=== PATIENT | female | born 1950 | race Caucasian/White ===

== ENCOUNTER → 2020-05-09 | Outpatient (CLI) | payer MEDICARE, OTHER ==
[~2020-05-09] MED LIST: CA C1TAB29 PO; CHOL4POW3 PO; DICL75TA PO; LEVE500T56 PO; LUTEIN; METO50TA4 PO; OMEG-117 PO; POTA20TA4 PO; UBID200C7 PO; ZOLP5TAB5 PO; [UNRECOGNIZED DRUG - CODE] PO; [UNRECOGNIZED DRUG - OTHER]; methylPREDNISolone ACETATE 40 MG/ML VIAL. ONE; methylPREDNISolone ACETATE 80 MG/ML VIAL. ONE
--- NOTE | 2020-05-09 13:50 | PDOC2 ---
INITIAL PAIN CONSULT DATE OF SERVICE: DOS: DATE: 05/09/20 TIME: 13:43 CHIEF COMPLAINT: Chief Complaint: Low back and right lower extremity pain HISTORY OF PRESENT ILLNESS: 69-year-old female presents with history of pain low back right lower extremity for about 6 months after she fell at home November 12, 2019 patient report before that she was doing fairly well but did have some pain in the low back but now is in the low back rating to the right lower extremity in the posterior lateral thigh lateral anterior thigh anterior medial thigh medial lower leg and into the posterior calf on the right as well. Patient which is worse with walking standing changing positions better with sitting or laying down does not awaken her from sleep generally but she does take sleeping aids to sleep patient reports it does affect her bowel bladder bowel and bladder control with some increased urgency but no loss of bowel function patient scribes pain is sharp and shooting in the low back and right lower extremity intermittent intensity worse with walking standing radiating in the right lower extremity as described. Patient has tried physical therapy as well as chiropractic treatment which did help but only to a temporary period of time and is not long-lasting. Patient is been taking [id number] anti-inflammatories as well as Tylenol with mild decrease in pain as well patient did have a CT scan of the lumbar spine showing L4-5 severe degenerative loss of disc height with disc bulge in the cephalad direction causing moderate left and moderate to severe right foraminal narrowing. Patient reports no overt loss of motor function but significant fatigability with the right lower extremity with ambulation.. PAST MEDICAL HISTORY: PMH: CV hypertension, irregular heart rhythm, endocarditis, asthma, dizziness, arthritis, kidney stones. PREVIOUS SURGERIES: Past Surgical Hx: Bilateral cataract extraction, meniscus surgery bilaterally 2005 and D&C 1987 CURRENT MEDICATIONS: Current Meds: Active Scripts Medications Dose Route/Sig Max Daily Dose Days Date Category Niacin Flush-Free 500 Mg Cap (Niacin (Inositol Niacinate)) 400 Mg Capsule 500 Mg PO DAILY 05/09/20 Reported [eye delmer w/lutein] 05/09/20 Reported Co Q-10 (Ubidecarenone) 200 Mg Capsule 1 Cap PO DAILY 30 05/09/20 Reported Vitamin D3-Aloe 1,000 Unit Tab (Ca Cmb 1/Vit D3/B-6/Fa/B12/Av) 1 Each Tablet 1 Each PO DAILY 05/09/20 Reported Fish Oil 1,200 mg Softgel ([place]-3/Dha/Epa/Fish Oil) 1 Each Capsule.dr 1 Cap PO BID 30 05/09/20 Reported Prevalite Packet (Cholestyramine/Aspartame) 4 Gm Powd.pack 4 Gm PO 1-2XD 05/09/20 Reported Potassium Chloride (Potassium Chloride) 20 Meq Tablet.er 20 Meq PO BID 05/09/20 Reported Zolpidem Tartrate 5 Mg Tablet 5 Mg PO PRN QHS PRN 05/09/20 Reported Keppra (Levetiracetam) 500 Mg Tablet 1 Tab PO BID 30 05/09/20 Reported Diclofenac Sodium 75 Mg Tablet.dr 1 Tab PO BID 05/09/20 Reported Toprol XL (Metoprolol Succinate) 50 Mg Tab.er.24h 50 Mg PO DAILY 05/09/20 Reported ALLERGIES; Allergies: Coded Allergies: bacitracin (Verified Allergy, Severe, hematuria,, 05/09/20) levofloxacin (Verified Allergy, Severe, swelling, 05/09/20) vancomycin (Verified Allergy, Severe, swelling, 05/09/20) iodine (Verified Allergy, Intermediate, 05/09/20) shellfish derived (Verified Allergy, Intermediate, 05/09/20) Uncoded Allergies: IV contrast (Allergy, Intermediate, 05/09/20) FAMILY HISTORY: Family Hx: Alzheimer's disease SOCIAL HISTORY: Social Hx: Patient does not drink alcohol does not smoke does not use any illegal illicit or recreational drugs is retired lives locally in [facility] REVIEW OF SYSTEMS: ROS: As of those on his mid to his present illness all systems are reviewed otherwise negative complete full well-documented on patient's chart PHYSICAL EXAM: VS: Pressure 152/74 pulse 58 respirations 20 temperature is 98.4 F height is 5 foot 4 inches weight is 207 pounds PE: PHYSICAL EXAMINATION: GENERAL: The patient is awake, alert, oriented, appropriate, very pleasant demeanor HEENT: Shows normocephalic, atraumatic. Extraocular movements are intact and symmetrical. Oral cavity: Mucous membranes moist and pink. Dentition is intact. NECK: Shows anterior throat supple without palpable lymphadenopathy noted. Swallow reflex symmetrical. CHEST: Shows normal on inspection. Breath sounds are clear bilaterally, no rales rhonchi or wheezes auscultated. HEART: Shows S1, S2 clear. No murmurs auscultated. ABDOMEN: Soft, nontender, nondistended. No palpable organomegaly is noted. No rebound or guarding demonstrated. BACK: Shows spine grossly in the midline. Normal-appearing cervical lordotic curvature. There is slightly increased thoracic kyphosis, some minor flattening of the lumbar lordotic curvature. Lumbar paraspinous muscles show symmetrical on inspection, on palpation shows some moderate tenderness diffusely throughout the upper, middle and lower distribution of the paraspinous muscles bilaterally and also into the lower thoracic paraspinous musculature, firm and tender, but without specific trigger points, without radiation of pain. The patient has good rotational motion of the lumbar spine, both laterally as well as extension and flexion without significant difficulty. No tenderness over the spinous processes, sacrum or sacroiliac regions. EXTREMITIES: Lower extremities show deep tendon reflexes 1+ in the patellar and tendo calcaneus tendons. Motor exam is 4 on a scale of 5 with right dorsifle xion, extension, quadriceps and hamstring flexion and 5/5 on the left. Peripheral pulses are 1+ posterior tibial. No peripheral edema is noted bilaterally. Lower extremities are warm and dry to touch, equal in color and appearance. Straight leg raise noted to be positive on the right about 35 degrees, left side is negative. Gaenslen's and Piero's maneuvers are negative as well. The patient is able to stand, needs help rising from a seated position using the arms of the chair. Walks with a walker which she has with her today. SKIN: Shows warm and dry, good turgor. No edema. No sores, rashes or bruising throughout. IMPRESSION: Impression: Is a 69-year-old female with approximate 6-month history low back right lower e xtremity pain and radicular fashion. MRI scan lumbar spine as noted Obesity Hypertension Arthritis Plan: Options were discussed with the patient including conservative medical management physical therapies interventional techniques. Patient would like to pursue interventional techniques. We discussed a lumbar epidural steroid duration using descriptions as well as anatomical model to describe the procedure. Risks are then discussed including but not limited to bleeding infection possibility of epidural hematoma and subsequent neurological compromise dural puncture headache spinal cord and or nerve damage side effects of steroid medication and poor results rating pain control. Patient understands and agrees would like to pursue this and will follow-up in approximately 2 weeks; patient was counseled as to return appointment activity level and side effects to be aware of. Procedure is lumbar epidural steroid injection under local anesthetic using sterile prep and drape at the L4-5 level using C-arm fluoroscopic guidance in both AP and lateral views medications injected is 120 mg Depo-Medrol + 10 mL preservative-free normal saline and 2 mL contrast- condition at discharge is stable patient tolerated procedure well had no complications. OLEGARIO DIAZ MD May 09, 2020 13:50
== END | disposition home or self-care (01) ==
LOC: PNCL 09:26
PROVIDERS: ATTEND Anesthesiology
DX: M54.5 Low back pain (principal); M79.661 Pain in right lower leg; I10 Essential (primary) hypertension; M19.90 Unspecified osteoarthritis, unspecified site; J45.909 Unspecified asthma, uncomplicated; Z88.8 Allergy status to other drugs, medicaments and biological substances; Z79.899 Other long term (current) drug therapy
CPT/HCPCS: 62323; J1030; J1040

== ENCOUNTER → 2020-05-28 | Outpatient (CLI) | payer MEDICARE ==
--- NOTE | 2020-05-28 09:49 | PDOC ---
Progress Note - Pain Clinic Date of Service: DOS: DATE: 05/28/20 TIME: 09:46 Diagnosis: Dx: Lumbar radiculopathy with lumbar degenerative disease and lumbar spinal stenosis History or Present Illness: HPI: 69-year-old female returns follow-up status post lumbar epidural to injection x1. Patient reports about 85% better with balance as well as decreased pain in her lower extremities especially in the back and the knees patient reports of increased activity greater ease and comfort walking greater distances doing household activities try with greater ease sleeping better at night occasionally wakes her from sleep but not more than once a night patient reports no new motor or sensory deficits no new bowel or bladder incontinence reports her pain is a 7 on a scale of 10 is worse over the past week 3 on average to its least. Describes pain as dull and tight in the back rating the posterior gluteus later al thighs anterior thighs medial thighs to the knees bilaterally which can be constant with activity much better with sitting and laying down. Patient reports no new motor or sensory deficits no new bowel or bladder incontinence or other complaints. Physical Exam: VS: Blood pressure is 194/96 pulse 84 respirations are 18 temperature 98.0 F height is 5 feet 4 inches weight is 208 pounds PE: PHYSICAL EXAMINATION: GENERAL: The patient is awake, alert, oriented, appropriate, very pleasant demeanor HEENT: Shows normocephalic, atraumatic. Extraocular movements are intact and symmetrical. Oral cavity: Mucous membranes moist and pink. NECK: Shows anterior throat supple without palpable lymphadenopathy noted. Swallow reflex symmetrical. CHEST: Shows normal on inspection. Breath sounds are clear bilaterally. HEART: Shows S1, S2 clear. No murmurs auscultated. ABDOMEN: Soft, nontender, nondistended. No palpable organomegaly is noted. No rebound or guarding demonstrated. BACK: Shows spine grossly in the midline. Normal-appearing cervical lordotic curvature. There is slightly increased thoracic kyphosis, some minor flattening of the lumbar lordotic curvature. Lumbar paraspinous muscles show symmetrical o n inspection, on palpation shows some moderate tenderness diffusely throughout the upper, middle and lower distribution of the paraspinous muscles bilaterally but without specific trigger points, without radiation of pain. The patient has good rotational motion of the lumbar spine, both laterally as well as extension and flexion without significant difficulty. No tenderness over the spinous processes, sacrum or sacroiliac regions. EXTREMITIES: Lower extremities show deep tendon reflexes 1+ in the patellar and tendo calcaneus tendons. Motor exam is 4 on a scale of 5 with right dorsiflexion, extension, quadriceps and hamstring flexion and 5/5 on the left. Peripheral pulses are 1+ posterior tibial. No peripheral edema is noted bilaterally. Lower extremities are warm and dry to touch, equal in color and appearance Procedure: Procedure: Options were discussed with the patient. Patient's old chart was reviewed as her current medication regimen updated current review of systems updated today as well. We will proceed with a second in the series lumbar epidural steroid injection today with fluoroscopic guidance. Risks were discussed including but not limited to: Bleeding, infection, possibility of epidural hematoma and subsequent neurological compromise, dural puncture, headaches, spinal cord and/or nerve damage, side effects of steroid medication, and poor results regarding pain control. Patient understands wished to proceed. Patient return to clinic in approximate 2 weeks for follow-up was counseled as to return appointment activity level and side effects to be aware of. Medication Injected: Med Injected: Procedure is lumbar epidural steroid injection under local anesthetic using sterile prep and drape at the L4-5 level using C-arm fluoroscopic guidance in both AP and lateral views medications injected is 120 mg Depo-Medrol + 10 mL preservative-free normal saline and 2 mL contrast- condition at discharge is stable patient tolerated procedure well had no complications. Condition at Discharge: Condition at Discharge: Condition at discharge stable patient tolerated procedure well had no complications. OLEGARIO DIAZ MD May 28, 2020 09:49
== END | disposition home or self-care (01) ==
LOC: PNCL 09:15
PROVIDERS: ATTEND Anesthesiology
DX: M51.16 Intervertebral disc disorders with radiculopathy, lumbar region (principal); M48.061 Spinal stenosis, lumbar region without neurogenic claudication; I10 Essential (primary) hypertension; Z88.8 Allergy status to other drugs, medicaments and biological substances; Z79.899 Other long term (current) drug therapy
CPT/HCPCS: 62323; J1030; J1040

== ENCOUNTER → 2020-09-24 | Outpatient (CLI) | payer MEDICARE ==
[~2020-09-24] MED LIST changes: +IOHEXOL 180 MG/ML 10 ML VIAL. ONE
--- NOTE | 2020-09-24 10:42 | PDOC ---
Progress Note - Pain Clinic Date of Service: DOS: DATE: 09/24/20 TIME: 10:39 Diagnosis: Dx: Lumbar radiculopathy with lumbar degenerative disease and lumbar spinal stenosis History or Present Illness: HPI: 69-year-old female returns to follow-up status post lumbar epidural steroid injection x2. Last seen May 28, 2020 patient reports initially she had by 85% improvement but the pain was not significantly reduced after second injection patient ports pain low back right lower extremity posterior gluteus posterior lateral thigh lateral anterior thigh anterior medial thigh medial lower leg and calf on the right side worse with walking standing changing positions. Patient describes as aching and sharp shooting in the right leg as well as some stabbing pain that can be severe and unbearable with walking standing better with sitting or laying down generally does not awaken her from sleep at night. Patient reports no new motor or sensory deficits but some constipation but no incontinence. Patient describes her pain is 8 on scale 10 is worse over the past week 6 on average 5 its least and is a 6 today. Physical Exam: VS: blood pressure is 133/77 pulse 75 respirations 16 temperature is 97.8 F height is 5 foot 4 inches weight is 196 pounds PE: PHYSICAL EXAMINATION: GENERAL: The patient is awake, alert, oriented, appropriate, very pleasant demeanor HEENT: Shows normocephalic, atraumatic. Extraocular movements are intact and symmetrical. Oral cavity: Mucous membranes moist and pink. NECK: Shows anterior throat supple without palpable lymphadenopathy noted. Swallow reflex symmetrical. CHEST: Shows normal on inspection. Breath sounds are clear bilaterally, no rales or rhonchi. HEART: Shows S1, S2 clear. No murmurs auscultated. ABDOMEN: Soft, nontender, nondistended, obese. No palpable organomegaly is noted. No rebound or guarding demonstrated. BACK: Shows spine grossly in the midline. Normal-appearing cervical lordotic curvature. There is slightly increased thoracic kyphosis, some minor flattening of the lumbar lordotic curvature. Lumbar paraspinous muscles show symmetrical on inspection, on palpation shows some moderate tenderness diffusely throughout the upper, middle and lower distribution of the paraspinous muscles, but without specific trigger points, without radiation of pain. The patient has good rotational motion of the lumbar spine, both laterally as well as extension and flexion without significant difficulty. No tenderness over the spinous processes, sacrum or sacroiliac regions. EXTREMITIES: Lower extremities show deep tendon reflexes 1+ in the patellar and tendo calcaneus tendons. Motor exam is 4 on a scale of 5 with right dorsiflexion, extension, quadriceps and hamstring flexion and 5/5 on the left. Peripheral pulses are 1+ posterior tibial. No peripheral edema is noted bilaterally. Lower extremities are warm and dry to touch, equal in color and appearance. SKIN: Shows warm and dry, good turgor. No edema. No sores, rashes or bruising throughout. Procedure: Procedure: Options discussed with the patient. Patient chart reviews her current medicat ion regimen updated current review of systems updated today as well. We will proceed with a lumbar epidural steroid injections the third in the series with fluoroscopic guidance today. Risks were discussed including but not limited to: Bleeding, infection, possibility of epidural hematoma and subsequent neurological compromise, dural puncture, headaches, spinal cord and/or nerve damage, side effects of steroid medication, and poor results regarding pain control. Patient understands wished to proceed. Patient will return to clinic in approximate 2 weeks for follow-up, was counseled as to return appointment activity level and side effects to be aware of. Medication Injected: Med Injected: Procedure is lumbar epidural steroid injection under local anesthetic using sterile prep and drape at the L4-5 level using C-arm fluoroscopic guidance in both AP and lateral views medications injected is 120 mg Depo-Medrol + 10 mL preservative-free normal saline and 2 mL contrast- condition at discharge is stable patient tolerated procedure well had no complications. Condition at Discharge: Condition at Discharge: Condition at discharge stable, patient tolerated procedure well and had no complications. OLEGARIO DIAZ MD Sep 24, 2020 10:42
== END | disposition home or self-care (01) ==
LOC: PNCL 09:24
PROVIDERS: ATTEND Anesthesiology
DX: M51.16 Intervertebral disc disorders with radiculopathy, lumbar region (principal); M48.061 Spinal stenosis, lumbar region without neurogenic claudication; Z91.041 Radiographic dye allergy status; Z88.8 Allergy status to other drugs, medicaments and biological substances; Z88.1 Allergy status to other antibiotic agents; Z91.013 Allergy to seafood
CPT/HCPCS: 62323; J1030; J1040; Q9965